=== PATIENT | male | born 1950 | race Caucasian/White ===

== ENCOUNTER → 2020-02-01 | Outpatient (CLI) | payer MEDICARE ==
[2020-02-01 10:22] LABS: CALCIUM 8.9 mg/dL (8.4-10.2); CREATININE, serum 0.79 (0.66-1.25); POTASSIUM 3.5 mmol/L (3.4-5.0)
== END ==
LOC: ZLAB.STJ 09:44
PROVIDERS: Family Medicine
DX: I10 Essential (primary) hypertension (principal)

== ENCOUNTER → 2020-03-06 | Outpatient (CLI) | payer MEDICARE ==
[2020-03-06 11:23] LABS: CALCIUM 9.1 mg/dL (8.4-10.2); CREATININE, serum 0.69 (0.66-1.25); POTASSIUM 4.4 mmol/L (3.4-5.0)
== END ==
LOC: ZLAB.STJ 11:12
PROVIDERS: Family Medicine
DX: I10 Essential (primary) hypertension (principal)

== ENCOUNTER → 2020-04-04 | Outpatient (CLI) | payer MEDICARE ==
[2020-04-04 16:21] LABS: CREATININE, serum 0.6 (0.66-1.25); POTASSIUM 4.2 mmol/L (3.4-5.0)
== END ==
LOC: ZLAB.STJ 15:18
PROVIDERS: Family Medicine
DX: I10 Essential (primary) hypertension (principal)

== ENCOUNTER → 2020-05-01 | Outpatient (CLI) | payer MEDICARE ==
[2020-05-01 13:10] LABS: BASO # 0.1 (0.0-0.2); BASO % 0.6 % (0.0-2.0); EOS # 0.3 (0.0-0.7); GRAN # 7.4 (1.4-6.5); GRAN % 69.9 % (42.2-75.2); HEMATOCRIT 42.7 % (42.0-52.0); HEMOGLOBIN 14.1 g/dl (13.5-18.0); LYMPH # 2.1 (1.2-3.4); LYMPH % 19.7 % (20.0-51.0); MEAN CELL VOLUME 91 fl (80.0-100.0); MEAN CORPUSCULAR HEMOGLOBIN 30 pg (27.0-31.0); MEAN CORPUSCULAR HGB CONC 33 g/dl (33.0-37.0); MEAN PLATELET VOLUME 11.4 fl (7.4-10.4); MONO # 0.7 (0.1-0.6); MONO % 6.3 % (1.7-9.3); PLATELET COUNT 229 K/mm3 (130-400); RED BLOOD COUNT 4.71 M/mm3 (4.20-5.60); REDCELL DISTRIBUTION WIDTH-CV 13.6 % (11.5-14.5)
[2020-05-01 13:28] LABS: ALBUMIN 3.5 gm/dL (3.5-5.0); BILIRUBIN,TOTAL 0.5 mg/dL (0.0-1.0); CHOLESTEROL RISK RATIO 2.8; CREATININE, serum 0.81 (0.66-1.25); POTASSIUM 4.1 mmol/L (3.4-5.0); TOTAL PROTEIN 6.2 gm/dL (6.4-8.2)
[2020-05-01 13:58] LABS: THYROID STIMULATING HORMONE 1.14 uIU/mL (0.465-4.680)
== END ==
LOC: ZLAB.STJ 11:13
DX: D64.9 Anemia, unspecified (principal); E78.5 Hyperlipidemia, unspecified; E07.9 Disorder of thyroid, unspecified; I10 Essential (primary) hypertension; R79.89 Other specified abnormal findings of blood chemistry; E78.1 Pure hyperglyceridemia

== ENCOUNTER → 2020-05-17 | Outpatient (CLI) | payer MEDICARE ==
[2020-05-17 13:24] LABS: COLLECTION METHOD CLEAN CATCH
[2020-05-17 13:42] LABS: PH 6 (5-8); SQUAMOUS EPITHELIAL None Seen /hpf; URINE APPEARANCE Cloudy; URINE BACTERIA None Seen /hpf; URINE BILIRUBIN Negative (NEGATIVE); URINE BLOOD 3+ (NEGATIVE); URINE COLOR Yellow; URINE GLUCOSE Negative (NEGATIVE); URINE KETONE Negative (NEGATIVE); URINE LEUKOCYTE ESTERASE Negative (NEGATIVE); URINE NITRATE Negative (NEGATIVE); URINE PROTEIN(semi-quant) 1+ (NEGATIVE); URINE RBC >50 /hpf; URINE UROBILINOGEN Negative (NEGATIVE)
== END ==
LOC: ZLAB.STJ 12:41
PROVIDERS: Family Medicine
DX: N39.0 Urinary tract infection, site not specified (principal)

== ENCOUNTER → 2020-08-13 | Outpatient (CLI) | payer MEDICARE ==
[~2020-08-13] MED LIST: 00186-0372-20; 00186-0372-20 IH; ASPIRIN 81M81 MG/TA2 PO; ATROVENT I0.2 MG/1 M IH; COLACE 100100 MG/CAP PO; COREG 25MG25 MG/TAB; FLOMAX 0.40.4 MG/CAP PO; HCTZ 25MG TAB25 MG PO; LIPITOR20 MG PO; NORVASC 10MG10 MG PO; PLAVIX 75MG TAB75 MG PO; PRINIVIL40 MG PO; PROAIR HFA0.09 MG/AC IH; PROTONIX 40MG T40 MG PO; VOLTAREN GEL 1%1 TU TP; WELLBUTRIN 75MG75 MG PO; ZOLOFT 100MG100 MG PO
[2020-08-13 12:14] LABS: COLLECTION METHOD CATHETER
[2020-08-13 12:28] LABS: MUCOUS Present /lpf; PH 5 (5-8); SQUAMOUS EPITHELIAL None Seen /hpf; URINE APPEARANCE Hazy; URINE BACTERIA Rare /hpf; URINE BILIRUBIN Negative (NEGATIVE); URINE BLOOD 3+ (NEGATIVE); URINE COLOR Yellow; URINE GLUCOSE Negative (NEGATIVE); URINE KETONE Negative (NEGATIVE); URINE LEUKOCYTE ESTERASE Negative (NEGATIVE); URINE NITRATE Negative (NEGATIVE); URINE PROTEIN(semi-quant) 1+ (NEGATIVE); URINE RBC >50 /hpf; URINE UROBILINOGEN Negative (NEGATIVE)
== END ==
LOC: ZLAB.STJ 11:57
PROVIDERS: Family Medicine
DX: R31.9 Hematuria, unspecified (principal)

== ENCOUNTER → 2020-08-16 | Outpatient (CLI) | payer MEDICARE, MEDICAID | LOC: COL.RAD 07:17 | DX: N20.0 Calculus of kidney (principal) ==

== ENCOUNTER 2020-08-18 20:47 | Observation (INO) | payer MEDICARE, MEDICAID ==
[~2020-08-18] VITALS: Ht 180.3 cm; Wt 107.8 kg
[2020-08-18 21:09] LABS: COLLECTION METHOD CLEAN CATCH
[2020-08-18 21:12] LABS: BASO # 0.1 (0.0-0.2); BASO % 0.7 % (0.0-2.0); EOS # 0.3 (0.0-0.7); EOS % 2.5 % (0-4.0); GRAN # 6.9 (1.4-6.5); GRAN % 70.2 % (42.2-75.2); HEMATOCRIT 42.3 % (42.0-52.0); LYMPH # 1.9 (1.2-3.4); LYMPH % 19.5 % (20.0-51.0); MEAN CELL VOLUME 91 fl (80.0-100.0); MEAN CORPUSCULAR HEMOGLOBIN 30 pg (27.0-31.0); MEAN CORPUSCULAR HGB CONC 33 g/dl (33.0-37.0); MEAN PLATELET VOLUME 10.8 fl (7.4-10.4); MONO # 0.7 (0.1-0.6); MONO % 6.6 % (1.7-9.3); PLATELET COUNT 225 K/mm3 (130-400); RED BLOOD COUNT 4.65 M/mm3 (4.20-5.60); REDCELL DISTRIBUTION WIDTH-CV 12.5 % (11.5-14.5)
[2020-08-18 21:17] LABS: MUCOUS Present /lpf; PH 6 (5-8); SQUAMOUS EPITHELIAL None Seen /hpf; URINE APPEARANCE Hazy; URINE BACTERIA None Seen /hpf; URINE BILIRUBIN Negative (NEGATIVE); URINE BLOOD 3+ (NEGATIVE); URINE COLOR Yellow; URINE GLUCOSE Negative (NEGATIVE); URINE KETONE Negative (NEGATIVE); URINE LEUKOCYTE ESTERASE Negative (NEGATIVE); URINE NITRATE Negative (NEGATIVE); URINE PROTEIN(semi-quant) Negative (NEGATIVE); URINE RBC >50 /hpf; URINE UROBILINOGEN Negative (NEGATIVE)
[2020-08-18 21:24] LABS: ALANINE AMINOTRANSFERASE 15 U/L (4-49); ALBUMIN 3.8 gm/dL (3.5-5.0); ALKALINE PHOSPHATASE 86 U/L (50-136); ANION GAP 7 mmol/L (7-16); AST,SGOT 15 U/L (15-37); BILIRUBIN,TOTAL 0.3 mg/dL (0.0-1.0); BLOOD UREA NITROGEN 23 mg/dL (9-20); CALCIUM 8.9 mg/dL (8.4-10.2); CARBON DIOXIDE 29 mmol/L (22-30); CHLORIDE 104 mmol/L (98-107); CREATININE, serum 0.72 (0.66-1.25); GLUCOSE 118 mg/dL (74-106); POTASSIUM 3.7 mmol/L (3.4-5.0); SODIUM 139 mmol/L (137-145); TOTAL PROTEIN 6.4 gm/dL (6.4-8.2)
[2020-08-18 21:43] LABS: ARTERIAL BLD GAS O2 SATURATION 96.7 % (92-100); ARTERIAL BLD GAS TCO2 CT 26.7; ARTERIAL BLOOD GAS BASE EXCESS 0.9 (-2-2); ARTERIAL BLOOD GAS HCO3 25.4 meq/L (22-26); ARTERIAL BLOOD GAS PCO2 40.6 mmHg (35-45); ARTERIAL BLOOD GAS PO2 84.7 mmHg (80-100); ARTERIAL BLOOD GAS pH 7.42 (7.35-7.45)
[2020-08-18 21:49] LABS: TROPONIN-I < 0.012 ng/mL (0.000-0.035)
[2020-08-18] MEDS ORDERED: NORVASC 10MG10 MG PO (21:50)
[2020-08-18] MEDS ORDERED: ASPIRIN 81M81 MG/TA2 PO (21:51)
[2020-08-18] MEDS ORDERED: LIPITOR20 MG PO (21:52)
[2020-08-18] MEDS ORDERED: PLAVIX 75MG TAB75 MG PO (21:52)
[2020-08-18] MEDS ORDERED: COLACE 100100 MG/CAP PO (21:53)
[2020-08-18] MEDS ORDERED: VOLTAREN GEL 1%1 TU TP (21:55)
[2020-08-18] MEDS ORDERED: ZOLOFT 100MG100 MG PO (21:55)
[2020-08-18] MEDS ORDERED: COREG 25MG25 MG/TAB (21:56)
[2020-08-18] MEDS ORDERED: PRINIVIL40 MG PO (21:59)
[2020-08-18] MEDS ORDERED: PROAIR HFA0.09 MG/AC IH (21:59)
[2020-08-18] MEDS ORDERED: HCTZ 25MG TAB25 MG PO (22:00)
[2020-08-18] MEDS ORDERED: 00186-0372-20 (22:01)
[2020-08-18] MEDS ORDERED: 00186-0372-20 IH (22:01)
[2020-08-18] MEDS ORDERED: PROTONIX 40MG T40 MG PO (22:02)
[2020-08-18] MEDS ORDERED: WELLBUTRIN 75MG75 MG PO (22:03)
[2020-08-18] MEDS ORDERED: FLOMAX 0.40.4 MG/CAP PO (22:03)
[2020-08-18] MEDS ORDERED: ATROVENT I0.2 MG/1 M IH (22:06)
[2020-08-19] VITALS (11 sets, daily range): BP systolic 117–166; BP diastolic 57–80; PULSE 55–77; TEMP 98.2–99.2
--- NOTE | 2020-08-19 01:30 | NUR ---
Pt admission procedure completed and charted. Pt was complaining of N/V since he came to the floor. Meds provided as per MAR, tolerated well. Pt denies pain, tingling, numbness, and pain. Pt is settled on room 312, no further needs at this time.
--- NOTE | 2020-08-19 06:05 | NUR ---
Pt slept on and off through out the night. Cleaned, changed, morning meds provided as per DEC, no further needs at this time.
[2020-08-19 06:45] LABS: BASO # 0.1 (0.0-0.2); BASO % 0.5 % (0.0-2.0); EOS % 0.3 % (0-4.0); GRAN # 8.5 (1.4-6.5); GRAN % 76.4 % (42.2-75.2); HEMATOCRIT 39.7 % (42.0-52.0); HEMOGLOBIN 13.3 g/dl (13.5-18.0); LYMPH # 1.7 (1.2-3.4); LYMPH % 15.2 % (20.0-51.0); MEAN CELL VOLUME 91 fl (80.0-100.0); MEAN CORPUSCULAR HEMOGLOBIN 30 pg (27.0-31.0); MEAN CORPUSCULAR HGB CONC 34 g/dl (33.0-37.0); MEAN PLATELET VOLUME 11.1 fl (7.4-10.4); MONO # 0.8 (0.1-0.6); MONO % 6.8 % (1.7-9.3); PLATELET COUNT 195 K/mm3 (130-400); RED BLOOD COUNT 4.38 M/mm3 (4.20-5.60); REDCELL DISTRIBUTION WIDTH-CV 12.6 % (11.5-14.5)
[2020-08-19 06:58] LABS: ALBUMIN 3.4 gm/dL (3.5-5.0); BILIRUBIN,TOTAL 0.4 mg/dL (0.0-1.0); CALCIUM 8.7 mg/dL (8.4-10.2); CREATININE, serum 0.72 (0.66-1.25); POTASSIUM 3.8 mmol/L (3.4-5.0); TOTAL PROTEIN 5.9 gm/dL (6.4-8.2)
--- NOTE | 2020-08-19 07:30 | NUR ---
Report received from ARLETTE rFancis. PT in bed resting with eyes open, will conitnue to monitor.
--- NOTE | 2020-08-19 11:28 | NUR ---
Assessment charted. Pt resting, down to OR at 0930. Pt able to give yes/no answers so not sure of orientation. RUE is very weak and a little puffy. at bedside, resting and discussed plan for todays surgery. Does exhibit pain when turning to change d/t incontinence of urine. Down for surgery. Denies other needs, IVF to [facility]. Will await return and ocntinue to monitor.
--- NOTE | 2020-08-19 18:00 | NUR ---
SW met with patient to complete intake, but patient was in surgery. Opal present and answered intake questions. states that patient is from [facility] and will return there upon DC. stated patient uses wheelchair for assistance, PCP is Dr. Hankins, and states that she is the patient's DPOA-HC. SW will continue to follow.
--- NOTE | 2020-08-19 18:06 | NUR ---
Pt has been doing well since returning from surgery. at bedside most of the day, pt continues to be very incontinent of urine. Swabbed for COVID so he can return to [facility] at discharge. Sitting at side of bed, able to verbalize a little more words. Bed alarm on, will give bedside shift report to nightshift nurse who will resume care.
--- NOTE | 2020-08-19 20:00 | NUR ---
Assessment complete. Patient is partially oriented, to self. He has no complaints of pain. He has been incontinent of urine that is slightly bloody and brief is changed at this time. Strings from stent procedure are hanging out of urethral opening as they should be. No new concerns, will continue to monitor.
[2020-08-20] VITALS (8 sets, daily range): BP systolic 105–155; BP diastolic 58–81; PULSE 56–75; TEMP 97.7–98.8
--- NOTE | 2020-08-20 06:22 | NUR ---
Patient has slept throughout the night with minimal complaints. He was incontinent of urine and omaira care was provided. This morning he is alert but not oriented; he replies "fourteen" to every orientation question asked. Call light in reach and bed alarm on.
--- NOTE | 2020-08-20 09:12 | NUR ---
Assessment complete. Patent sitting up in bed at this time. He is alert but not oriented to anything, including himself. PAtient continued to answer all questions with "fourteen". He is plesant and in good spirits. Followed directions well. Right side remains weak. Patient denies pain and discomfort at this time. No other need were expressed at this time. Call light is in reach.
--- NOTE | 2020-08-20 09:22 | NUR ---
Initial visit; Patient thanked T[employer]er for stopping and offering God's blessings and letting him know of the availability of spiritual care.
--- NOTE | 2020-08-20 09:40 | NUR ---
The patient is to tentatively d/c today back to [facility], pending COVID results. ARJUN contacted and updated the patient's , Opal. She is in agreement to d/c. ARJUN notified and faxed updates to Jefe at [facility].
--- NOTE | 2020-08-20 16:31 | NUR ---
The patient's COVID results are still pending. ARJUN notified Jefe at [facility]. They are unable to take back until results are in. ARJUN notified SADE Berg. ARJUN attempted to contact and updated the patient's , Opal. ARJUN left her a voicmail.
--- NOTE | 2020-08-20 18:22 | NUR ---
PAtient has had an uneventful shift. He was very disappointed and upset that he was not able to leave today but other than that has had no complaints. He was inconntinent of urine twice through out the day, red tinged urine. soaked his breif and bed, alot of urine output. Suture strings still visible at urethera. No complaints of pain or discomfort were reported. Pillow was placed under the patients left side just now after being changed. Total bed bath provided. PAtient is now comfortable. No other needs. Call light is inr each.
--- NOTE | 2020-08-20 19:00 | NUR ---
Pt was setting on his bed when this nurse went for a bedside handover. Pt looks worried, later pt stated that he wanted to go to the [facility] today but he ended up staying here for one more night. will keep monitoring him.
--- NOTE | 2020-08-21 00:29 | NUR ---
Pt assessment completed and charted, alert, oriented, roomair. Meds provided as per MAR, tolerated well. Pt is settled on his bed, call light is on reach. No further needs at this time.
[2020-08-21 03:55] VITALS: BP 145/69; PULSE 63; TEMP 98.1
--- NOTE | 2020-08-21 05:55 | NUR ---
Pt had an uneventful night, slept through out the night. Morning meds provided. Cleaned and changed. No further needs at this time.
[2020-08-21 08:26] VITALS: BP 143/71; PULSE 61; TEMP 97.4
--- NOTE | 2020-08-21 09:40 | NUR ---
Pt awake and alert upon entry, was able to verbalize, no C/O pain at this time. Shift assessments complete, left Pt call light in reach, bed in lowest position, alarm on.
--- NOTE | 2020-08-21 09:43 | NUR ---
The patient's COVID results came back negative. ARJUN notified and faxed the results to Jefe at [facility]. The patient is to discharge today, 08/21, back to [facility] for long-term care. Transportation was scheduled at 1330, via [facility]. ARJUN attempted to inform the patient's . ARJUN left her a voicemail. ARJUN informed the patient's RN and his son, Sin, via phone. They were both agreeable to the time. No additional needs at this time.
--- NOTE | 2020-08-21 14:26 | NUR ---
Pt discharged to [facility], Pt transported via [facility] transportation.
== END 2020-08-21 14:27 ==
LOC: COL.ER 20:47 → MEDICAL 23:49
PROVIDERS: Family Medicine; Physician Assistant; ADMIT Internal Medicine
DX: N13.2 Hydronephrosis with renal and ureteral calculous obstruction (principal); R07.89 Other chest pain; R11.2 Nausea with vomiting, unspecified; R40.4 Transient alteration of awareness; I69.320 Aphasia following cerebral infarction; I69.351 Hemiplegia and hemiparesis following cerebral infarction affecting right dominant side; I10 Essential (primary) hypertension; Z20.828 Contact with and (suspected) exposure to other viral communicable diseases; G47.33 Obstructive sleep apnea (adult) (pediatric); J44.9 Chronic obstructive pulmonary disease, unspecified; K21.9 Gastro-esophageal reflux disease without esophagitis; F32.9 Major depressive disorder, single episode, unspecified; G93.89 Other specified disorders of brain; Z79.82 Long term (current) use of aspirin; Z79.899 Other long term (current) drug therapy; Z79.02 Long term (current) use of antithrombotics/antiplatelets; Z93.1 Gastrostomy status; Z79.51 Long term (current) use of inhaled steroids; Z79.52 Long term (current) use of systemic steroids
CPT/HCPCS: C1769; C2617; G0378; J0690; J1100; J2270; J2405; J2550; J2704; J3010; J7030; J7120; Q9967

== ENCOUNTER 2020-09-24 06:33 | Emergency (ER) | payer MEDICARE, MEDICAID ==
[~2020-09-24] VITALS: Ht 182.9 cm; Wt 90.9 kg
[~2020-09-24 06:33] MED LIST changes: -COREG 25MG25 MG/TAB; +COREG 25MG25 MG/TAB PO
[2020-09-24 06:38] VITALS: TEMP 97.7
[2020-09-24 07:17] LABS: BASO % 0.3 % (0.0-2.0); EOS % 0.3 % (0-4.0); GRAN # 9.6 (1.4-6.5); GRAN % 83.9 % (42.2-75.2); HEMATOCRIT 43.7 % (42.0-52.0); HEMOGLOBIN 14.6 g/dl (13.5-18.0); LYMPH # 1.1 (1.2-3.4); LYMPH % 9.9 % (20.0-51.0); MEAN CELL VOLUME 90 fl (80.0-100.0); MEAN CORPUSCULAR HEMOGLOBIN 30 pg (27.0-31.0); MEAN CORPUSCULAR HGB CONC 33 g/dl (33.0-37.0); MEAN PLATELET VOLUME 10.8 fl (7.4-10.4); MONO # 0.6 (0.1-0.6); MONO % 4.8 % (1.7-9.3); PLATELET COUNT 211 K/mm3 (130-400); RED BLOOD COUNT 4.88 M/mm3 (4.20-5.60); REDCELL DISTRIBUTION WIDTH-CV 12.2 % (11.5-14.5)
[2020-09-24 07:30] LABS: ALBUMIN 4.1 gm/dL (3.5-5.0); BILIRUBIN,TOTAL 0.5 mg/dL (0.0-1.0); CALCIUM 9.5 mg/dL (8.4-10.2); CREATININE, serum 0.83 (0.66-1.25); POTASSIUM 3.6 mmol/L (3.4-5.0); TOTAL PROTEIN 6.9 gm/dL (6.4-8.2)
[2020-09-24 09:57] LABS: COLLECTION METHOD CLEAN CATCH
[2020-09-24 10:23] LABS: MUCOUS Present /lpf; PH 7 (5-8); SQUAMOUS EPITHELIAL None Seen /hpf; URINE APPEARANCE Hazy; URINE BACTERIA None Seen /hpf; URINE BILIRUBIN Negative (NEGATIVE); URINE BLOOD 3+ (NEGATIVE); URINE COLOR Straw; URINE GLUCOSE Negative (NEGATIVE); URINE KETONE Negative (NEGATIVE); URINE LEUKOCYTE ESTERASE Negative (NEGATIVE); URINE NITRATE Negative (NEGATIVE); URINE PROTEIN(semi-quant) Negative (NEGATIVE); URINE RBC >50 /hpf; URINE UROBILINOGEN Negative (NEGATIVE)
[2020-09-24] MEDS ORDERED: NORCO 325 MG-51 TAB PO (10:42)
[2020-09-24] MEDS ORDERED: ZOFRAN ODT4 MG PO (10:42)
[2020-09-24 11:30] VITALS: BP 150/82; PULSE 66
[2020-09-24] MEDS ORDERED: TYLENOL 325MG325 MG PO (12:06)
[2020-09-24] MEDS ORDERED: MIRALAX PA17 GM/Dose PO (12:07)
[2020-09-24] MEDS ORDERED: TESSALON P100 MG/CAP PO (12:09)
[2020-09-24] MEDS ORDERED: ATROVENT I0.2 MG/1 M IH (12:10)
== END 2020-09-24 11:49 ==
LOC: COL.ER 06:33
PROVIDERS: Emergency Medicine
DX: R10.31 Right lower quadrant pain (principal); R11.2 Nausea with vomiting, unspecified; D72.829 Elevated white blood cell count, unspecified; Z79.82 Long term (current) use of aspirin; Z79.02 Long term (current) use of antithrombotics/antiplatelets; Z79.51 Long term (current) use of inhaled steroids
CPT/HCPCS: J1170; J1885; J2405; J7030; Q9967

== ENCOUNTER → 2020-10-09 | Outpatient (CLI) | payer MEDICARE, MEDICAID ==
[~2020-10-09] MED LIST changes: +MIRALAX PA17 GM/Dose PO; +NORCO 325 MG-51 TAB PO; +TESSALON P100 MG/CAP PO; +TYLENOL 325MG325 MG PO; +ZOFRAN ODT4 MG PO
[2020-10-09 13:42] LABS: CALCIUM 9.2 mg/dL (8.4-10.2); CREATININE, serum 0.72 (0.66-1.25); POTASSIUM 4.3 mmol/L (3.4-5.0)
== END ==
LOC: ZLAB.STJ 10:59
PROVIDERS: Urology
DX: I10 Essential (primary) hypertension (principal)

== ENCOUNTER → 2020-11-15 | Outpatient (CLI) | payer MEDICARE, MEDICAID | LOC: ZLAB.STJ 11:34 | DX: C61 Malignant neoplasm of prostate (principal) ==

== ENCOUNTER → 2021-04-10 | Outpatient (CLI) | payer MEDICARE, MEDICAID ==
[2021-04-10 13:09] LABS: BASO # 0.1 (0.0-0.2); BASO % 0.7 % (0.0-2.0); EOS # 0.2 (0.0-0.7); EOS % 3.3 % (0-4.0); GRAN # 4.4 (1.4-6.5); GRAN % 62.9 % (42.2-75.2); HEMATOCRIT 43.2 % (42.0-52.0); LYMPH # 1.8 (1.2-3.4); LYMPH % 25.4 % (20.0-51.0); MEAN CELL VOLUME 93 fl (80.0-100.0); MEAN CORPUSCULAR HEMOGLOBIN 30 pg (27.0-31.0); MEAN CORPUSCULAR HGB CONC 32 g/dl (33.0-37.0); MEAN PLATELET VOLUME 11.3 fl (7.4-10.4); MONO # 0.5 (0.1-0.6); MONO % 7.3 % (1.7-9.3); PLATELET COUNT 244 K/mm3 (130-400); RED BLOOD COUNT 4.67 M/mm3 (4.20-5.60); REDCELL DISTRIBUTION WIDTH-CV 12.5 % (11.5-14.5)
[2021-04-10 13:17] LABS: ALBUMIN 3.7 gm/dL (3.5-5.0); BILIRUBIN,TOTAL 0.5 mg/dL (0.0-1.0); CALCIUM 9.2 mg/dL (8.4-10.2); CREATININE, serum 0.71 (0.66-1.25); POTASSIUM 4.7 mmol/L (3.4-5.0); TOTAL PROTEIN 6.7 gm/dL (6.4-8.2)
== END ==
LOC: ZLAB.STJ 12:48
PROVIDERS: Family Medicine
DX: I10 Essential (primary) hypertension (principal); R60.9 Edema, unspecified

== ENCOUNTER → 2021-04-17 | Outpatient (CLI) | payer MEDICARE, MEDICAID ==
[2021-04-17 12:29] LABS: BASO # 0.1 (0.0-0.2); BASO % 0.6 % (0.0-2.0); EOS # 0.2 (0.0-0.7); GRAN % 61.6 % (42.2-75.2); HEMATOCRIT 42.9 % (42.0-52.0); HEMOGLOBIN 13.9 g/dl (13.5-18.0); LYMPH # 2.1 (1.2-3.4); LYMPH % 26.2 % (20.0-51.0); MEAN CELL VOLUME 92 fl (80.0-100.0); MEAN CORPUSCULAR HEMOGLOBIN 30 pg (27.0-31.0); MEAN CORPUSCULAR HGB CONC 32 g/dl (33.0-37.0); MEAN PLATELET VOLUME 11.5 fl (7.4-10.4); MONO # 0.7 (0.1-0.6); PLATELET COUNT 234 K/mm3 (130-400); RED BLOOD COUNT 4.69 M/mm3 (4.20-5.60); REDCELL DISTRIBUTION WIDTH-CV 12.6 % (11.5-14.5)
[2021-04-17 12:36] LABS: ALBUMIN 3.7 gm/dL (3.5-5.0); BILIRUBIN,TOTAL 0.4 mg/dL (0.0-1.0); CALCIUM 9.2 mg/dL (8.4-10.2); CREATININE, serum 0.76 (0.66-1.25); POTASSIUM 4.3 mmol/L (3.4-5.0); TOTAL PROTEIN 6.8 gm/dL (6.4-8.2)
== END ==
LOC: ZLAB.STJ 11:31
PROVIDERS: Family Medicine
DX: R68.89 Other general symptoms and signs (principal); I10 Essential (primary) hypertension

== ENCOUNTER 2021-11-12 20:04 | Emergency (ER) | payer MEDICARE, MEDICAID ==
[~2021-11-12] VITALS: Ht 182.9 cm; Wt 113.6 kg
[2021-11-12 20:05] VITALS: TEMP 98.3
[2021-11-12 21:34] LABS: BASO % 0.5 % (0.0-2.0); EOS # 0.2 K/mm3 (0.0-0.7); EOS % 2.7 % (0.0-4.0); GRAN # 5.1 K/mm3 (1.4-6.5); HEMATOCRIT 40.7 % (42.0-52.0); HEMOGLOBIN 13.5 g/dl (13.5-18.0); LYMPH # 2.5 K/mm3 (1.2-3.4); LYMPH % 28.4 % (20.0-51.0); MEAN CELL VOLUME 89 fl (80.0-100.0); MEAN CORPUSCULAR HEMOGLOBIN 29 pg (27-31); MEAN CORPUSCULAR HGB CONC 33 g/dl (33.0-37.0); MEAN PLATELET VOLUME 11.1 fl (7.4-10.4); MONO # 0.9 K/mm3 (0.1-0.6); MONO % 9.8 % (1.7-9.3); PLATELET COUNT 243 K/mm3 (130-400); RED BLOOD COUNT 4.59 M/mm3 (4.20-5.60); REDCELL DISTRIBUTION WIDTH-CV 13.1 % (11.5-14.5)
[2021-11-12 21:39] LABS: ALANINE AMINOTRANSFERASE 12 U/L (0-55); ALBUMIN 3.7 gm/dL (3.4-4.8); ALKALINE PHOSPHATASE 117 U/L (40-150); ANION GAP 13 mmol/L (7-16); AST,SGOT 11 U/L (5-34); BILIRUBIN,TOTAL 0.3 mg/dL (0.2-1.2); BLOOD UREA NITROGEN 26 mg/dL (8-26); CALCIUM 8.9 mg/dL (8.4-10.2); CARBON DIOXIDE 27 mmol/L (23-31); CHLORIDE 105 mmol/L (98-107); CREATININE, serum 1.02 mg/dL (0.72-1.25); GLUCOSE 116 mg/dL (70-99); POTASSIUM 3.1 mmol/L (3.5-4.5); SODIUM 145 mmol/L (136-145); TOTAL PROTEIN 7.1 gm/dL (6.2-8.1)
[2021-11-12 21:49] LABS: TROPONIN-I < 0.010 ng/mL (0.00-0.033)
[2021-11-12 22:58] VITALS: BP 120/60; PULSE 73
== END 2021-11-12 22:58 | disposition home or self-care (01) ==
LOC: COL.ER 20:04
PROVIDERS: Physician Assistant
DX: U07.1 COVID-19 (principal); E87.6 Hypokalemia; I50.9 Heart failure, unspecified; I11.0 Hypertensive heart disease with heart failure; J44.9 Chronic obstructive pulmonary disease, unspecified; F32.A Depression, unspecified; K21.9 Gastro-esophageal reflux disease without esophagitis; Z86.73 Personal history of transient ischemic attack (TIA), and cerebral infarction without residual deficits; Z79.82 Long term (current) use of aspirin; Z79.02 Long term (current) use of antithrombotics/antiplatelets; Z79.899 Other long term (current) drug therapy
CPT/HCPCS: J1100

== ENCOUNTER → 2021-11-27 | Outpatient (CLI) | payer MEDICARE, MEDICAID | LOC: COL.RAD 11:59 | DX: I51.7 Cardiomegaly (principal); R91.8 Other nonspecific abnormal finding of lung field ==

== ENCOUNTER → 2022-02-07 | Outpatient (CLI) | payer MEDICARE, MEDICAID ==
[2022-02-07 12:14] LABS: CHOLESTEROL RISK RATIO 3.2
== END ==
LOC: ZLAB.STJ 11:50
PROVIDERS: Internal Medicine
DX: E78.1 Pure hyperglyceridemia (principal); I10 Essential (primary) hypertension